=== PATIENT | male | born 1960 | race Caucasian/White ===

== ENCOUNTER 2018-02-02 06:28 | Inpatient (IN) | payer OTHER ==
[2018-01-25 10:24] VITALS: BMI 28.2
[~2018-02-02 06:28] MED LIST: CELECOXIB 200 MG CAPSULE PO ONE; GABAPENTIN 300 MG CAPSULE (FP) PO ONE; PANTOPRAZOLE 40 MG TABLET (FP) PO ONE; TRANEXAMIC ACID 1000 MG/10 ML VIAL IVPUSH ONE; oxyCODONE HCL 10 MG SUSTAINED ACTING TABLET PO ONE
--- NOTE | 2018-02-02 06:51 | HP ---
Admitting History and Physical - Admission Chief Complaint: right hip osteoarthritis x years History of Present Illness: 57-year-old male presenting in regard to his right hip. Patient has a long- standing history of right hip osteoarthritis. Patient complains of pain, limited range of motion, and difficulties with activities of daily living, such as putting on his socks and shoes. Patient has failed conservative treatment measures including PO medications, activity modification, exercise program, and injections. At this point, patient would like to proceed with a right total hip arthroplasty, [facility]. History Source: Patient - Past Medical History Cardiovascular: Yes: HTN Psych: Yes: Other (insomnia) - Past Surgical History Additional Past Surgical History: see written history and physical. - Smoking History Smoking history: Former smoker Have you smoked in the past 12 months: No Aproximately how many cigarettes per day: 20 If you are a former smoker, when did you quit?: 2017 - Alcohol/Substance Use Hx Alcohol Use: Yes (SOCIAL) Home Medications - Allergies Allergies/Adverse Reactions: Allergies Allergy/AdvReac Type Severity Reaction Status Date / Time Penicillins Allergy Severe Hives Verified 01/25/18 10:16 - Home Medications Home Medications: Ambulatory Orders Metoprolol Succinate 25 mg PO DAILY 01/25/18 Trazodone HCl 200 mg PO HS 01/25/18 Review of Systems Findings/Remarks: right hip pain, limited range of motion. Physical Examination Constitutional: Yes: Well Nourished, No Distress Eyes: Yes: Conjunctiva Clear HENT: Yes: Atraumatic, Normocephalic Neck: Yes: Supple Cardiovascular: Yes: Regular Rate and Rhythm Respiratory: Yes: Regular Gastrointestinal: Yes: Soft ...Rectal Exam: Yes: Deferred Musculoskeletal: Yes: Joint Stiffness (right hip) Assessment/Plan 57-year-old male presenting in regard to his right hip. Patient has a long- standing history of right hip osteoarthritis. Patient complains of pain, limited range of motion, and difficulties with activities of daily living, such as putting on his socks and shoes. Patient has failed conservative treatment measures including PO medications, activity modification, exercise program, and injections. Pros, cons, risks, benefits, and alternatives of a right total hip arthroplasty were discussed with the patient at length. Patient confirms his understanding. At this point, patient consents to a right total hip arthroplasty , [facility].
[2018-02-02] MEDS ORDERED: PANTOPRAZOLE 40 MG TABLET (FP) ONE (07:03)
[2018-02-02] MEDS ORDERED: CELECOXIB 200 MG CAPSULE ONE (07:04)
[2018-02-02] MEDS ORDERED: oxyCODONE HCL 10 MG SUSTAINED ACTING TABLET ONE (07:04)
[2018-02-02] MEDS ORDERED: GABAPENTIN 300 MG CAPSULE (FP) ONE (07:04)
[2018-02-02] MEDS ORDERED: VANCOMYCIN 1,000 MG VIAL (RESTRICTED TO ID ONLY) ONE (08:20)
[2018-02-02] MEDS ORDERED: ceFAZolin SODIUM 1 GM VIAL ONE ×2 (08:20→08:47)
[2018-02-02] MEDS ORDERED: TRANEXAMIC ACID 1000 MG/10 ML VIAL ONE ×2 (08:20→12:06)
[2018-02-02] MEDS ORDERED: DEXAMETHASONE SOD PHOSPHATE/PF 10 MG/ML SDV ONE (08:22)
[2018-02-02] MEDS ORDERED: MIDAZOLAM HCL 2 MG/2 ML SINGLE DOSE VIAL ONE ×2 (08:22→12:00)
[2018-02-02] MEDS ORDERED: ROPIVICAINE 0.2%/MORPH PF/KETOROLAC - 51ML DISP.SYRINGE IA ONE ×4 (08:22→10:36)
[2018-02-02] MEDS ORDERED: BUPIVACAINE HCL/PF (5 MG/ML) 30 ML VIAL IJ ONE ×2 (08:23→08:54)
[2018-02-02] MEDS ORDERED: PROPOFOL 20 ML ONE ×6 (08:46→12:15)
[2018-02-02] MEDS ORDERED: SUCCINYLCHOLINE CHLORIDE 200 MG/10 ML VIAL ONE (08:46)
[2018-02-02] MEDS ORDERED: ONDANSETRON 4 MG/2 ML VIAL ONE (08:47)
[2018-02-02] MEDS ORDERED: DEXAMETHASONE SOD PHOSPHATE 4 MG/1 ML VIAL ONE (08:47)
[2018-02-02] MEDS ORDERED: CEFAZOLIN 2 GM in DEXTROSE 5%-WATER - 50 ML IVPB ONE (09:00)
[2018-02-02] MEDS ORDERED: ePHEDrine SULFATE 50 MG/1 ML AMPULE ONE ×2 (09:49→10:20)
[2018-02-02] MEDS ORDERED: TRANEXAMIC ACID 1000 MG/10 ML VIAL IVPB ONE (10:10)
[2018-02-02] MEDS ORDERED: VANCOMYCIN 1,000 MG VIAL (RESTRICTED TO ID ONLY) IVPB ONE (10:11)
[2018-02-02] MEDS ORDERED: ONDANSETRON 4 MG/2 ML VIAL IVPUSH PRN ×2 (10:51→13:18)
[2018-02-02] MEDS ORDERED: oxyCODONE HCL 5 MG TABLET PO PRN (10:52)
[2018-02-02] MEDS ORDERED: KETOROLAC TROMETHAMINE 30 MG/1 ML VIAL ONE (13:04)
[2018-02-02] MEDS ORDERED: ACETAMINOPHEN INJECTION 100 ML IVPB ONE (13:04)
[2018-02-02] MEDS ORDERED: traMADol HCL 50 MG TABLET ONE (13:04)
[2018-02-02] MEDS ORDERED: MAGNESIUM HYDROX 2400MG/30ML ORAL SUSPENSION 30 ML CUP PO PRN (13:18)
[2018-02-02] MEDS ORDERED: MAG HYDROX/AL HYDROX/SIMETH 30 ML UNIT-DOSE CUP PO PRN (13:18)
[2018-02-02] MEDS ORDERED: LACTATED RINGERS SOLUTION 1,000 ML IV SCH (13:30)
[2018-02-02] MEDS: ACETAMINOPHEN 1000 MG/100 ML VIAL (NON FORMULARY) IVPB ONE (13:32)
[2018-02-02] MEDS: KETOROLAC TROMETHAMINE 30 MG/1 ML VIAL IVPUSH SCH ×2 (13:33→20:21)
--- NOTE | 2018-02-02 13:33 | OP ---
Operative Note - Note: Operative Date: 02/02/18 Pre-Operative Diagnosis: right hip osteoarthritis Operation: Right total hip makoplasty Post-Operative Diagnosis: Same as Pre-op Surgeon: Robert Lepe Glass Forming Crew Member: Freda Narvaez Anesthesiologist/FACTORY EXPERT: Clay Thakkar Anesthesia: Spinal, Local Specimens Removed: right femoral head Estimated Blood Loss (mls): 150 Fluid Volume Replaced (mls): 900 Operative Report Dictated: Yes
--- NOTE | 2018-02-02 13:34 | SURG ---
Surgery Mine Exploration Engineer Note Mine Exploration Engineer: Freda Narvaez PA-C Date of Service: 02/02/18 Diagnosis: right hip osteoarthritis Procedure: right total hip makoplasty I was present for the entirety of the operative procedure. For further detail, please refer to operative report. Visit type - Case Type Case Type: Scheduled Admission - Emergency Emergency Visit: No - New patient This patient is new to me today: Yes Date on this admission: 02/02/18
[2018-02-02] MEDS: traMADol HCL 50 MG TABLET PO SCH ×2 (13:37→20:22)
[2018-02-02] MEDS: oxyCODONE HCL 5 MG TABLET PO PRN ×3 (15:00→20:34)
[2018-02-02] MEDS ORDERED: CEFAZOLIN 2 GM in DEXTROSE 5%-WATER - 50 ML IVPB SCH (18:00)
[2018-02-02] MEDS ORDERED: DEXAMETHASONE SOD PHOSPHATE 10 MG/1 ML VIAL IVPB ONE (20:00)
[2018-02-02] MEDS: ACETAMINOPHEN 325 MG TABLET (FP) PO SCH (20:22)
[2018-02-02] MEDS: traZODone HCL 50 MG TABLET (FP) PO SCH (21:40)
[2018-02-02] MEDS: ASCORBIC ACID 500 MG TABLET (FP) PO SCH (21:41)
[2018-02-02] MEDS: GABAPENTIN 300 MG CAPSULE (FP) PO SCH (21:41)
[2018-02-02] MEDS: SENNOSIDES/DOCUSATE COMBO (SENNA PLUS) TABLET (UD) PO SCH (21:41)
[2018-02-02] MEDS: oxyCODONE HCL 10 MG SUSTAINED ACTING TABLET PO SCH (21:41)
[2018-02-02] MEDS: CELECOXIB 200 MG CAPSULE PO SCH (21:41)
[2018-02-02] MEDS ORDERED: GABAPENTIN 300 MG CAPSULE (FP) PO SCH (22:00)
[2018-02-03] MEDS: traMADol HCL 50 MG TABLET PO SCH ×5 (01:46→18:37)
[2018-02-03] MEDS: KETOROLAC TROMETHAMINE 30 MG/1 ML VIAL IVPUSH SCH ×3 (01:46→08:18)
[2018-02-03] MEDS: ACETAMINOPHEN 325 MG TABLET (FP) PO SCH ×4 (01:47→18:34)
[2018-02-03] MEDS: CEFAZOLIN 2 GM/D5W 2 GM/50 ML ML IVPB SCH ×2 (01:52→08:19)
[2018-02-03] MEDS: oxyCODONE HCL 5 MG TABLET PO PRN ×2 (05:20→09:45)
[2018-02-03] MEDS: ASPIRIN 325 MG TABLET PO SCH (08:00)
[2018-02-03] MEDS: ACETAMINOPHEN 1000 MG/100 ML VIAL (NON FORMULARY) IVPB ONE (08:18)
[2018-02-03] MEDS: LACTATED RINGERS SOLUTION 1,000 ML IV SCH ×2 (08:18→11:13)
[2018-02-03 08:29] LABS: HEMATOCRIT 39.2 % (35.4-49); HEMOGLOBIN 13.7 GM/dl (11.7-16.9); MCH 33.1 pg (25.7-33.7); MEAN CELL VOLUME 94.6 fl (80-96); MEAN PLT VOLUME 8.2 fl (7.5-11.1); PLATELET COUNT 247 K/MM3 (134-434); RBC 4.14 M/mm3 (4.00-5.60); RDW 14.7 % (11.9-15.9); WHITE BLOOD COUNT 14.8 K/mm3 (4.0-10.8)
[2018-02-03 09:05] LABS: ANION GAP 5 (8-16); BLOOD UREA NITROGEN 24 mg/dl (7-18); CALCIUM 8.3 mg/dl (8.4-10.2); CHLORIDE 97 mmol/L (98-107); CO2 28 mmol/L (22-28); CREATININE 1.2 mg/dl (0.6-1.3); GLUCOSE,RANDOM 149 mg/dl (74-106); POTASSIUM 5.3 mmol/L (3.5-5.1); SODIUM 130 mmol/L (136-145)
[2018-02-03] MEDS: CELECOXIB 200 MG CAPSULE PO SCH ×2 (09:42→21:54)
[2018-02-03] MEDS: ASCORBIC ACID 500 MG TABLET (FP) PO SCH ×2 (09:42→21:54)
[2018-02-03] MEDS: MULTIVITAMINS (DAILY MVI) TABLET (FP) PO SCH (09:42)
[2018-02-03] MEDS: metoPROLOL SUCCINATE 25 MG TAB.SR.24H (FP) PO SCH (09:43)
[2018-02-03] MEDS: GABAPENTIN 300 MG CAPSULE (FP) PO SCH ×2 (09:43→21:54)
[2018-02-03] MEDS: SENNOSIDES/DOCUSATE COMBO (SENNA PLUS) TABLET (UD) PO SCH ×2 (09:43→21:54)
[2018-02-03] MEDS: oxyCODONE HCL 10 MG SUSTAINED ACTING TABLET PO SCH ×2 (09:43→21:54)
[2018-02-03] MEDS: PANTOPRAZOLE 40 MG TABLET (FP) PO SCH (09:43)
--- NOTE | 2018-02-03 13:09 | PN ---
Progress Note (short form) - Note Progress Note: 57M POD1 s/p R THR under spinal anesthetic with peripheral nerve blocks. Pain is well controlled, reports no anesthetic complications. AVSS. Motor and sensory function intact in bilateral lower extremities. Continue current regimen.
--- NOTE | 2018-02-03 21:09 | PN ---
Progress Note (short form) - Note Progress Note: Pt seen and examined. Doing well. AVSS Selected Entries 02/03/18 21:50 Temperature 97.8 F Pulse Rate 52 L Respiratory 16 Rate Blood Pressure 128/62 O2 Sat by Pulse 99 Oximetry (%) Laboratory Tests 02/03/18 02/03/18 08:01 08:01 WBC 14.8 H Hgb 13.7 Hct 39.2 Plt Count 247 Sodium 130 L Potassium 5.3 H Chloride 97 L Carbon Dioxide 28 Anion Gap 5 L BUN 24 H Creatinine 1.2 Random Glucose 149 H Calcium 8.3 L Gen: NAD LLE: c/d/i, NVID A/P 57yo male POD#1 s/p R MONTEZ Doing well PT/OOB - WBAT LLE D/C in AM after PT; f/u in office in 10-14 days.
[2018-02-03] MEDS: traZODone HCL 50 MG TABLET (FP) PO SCH (21:54)
--- NOTE | 2018-02-03 22:36 | SPEC ---
DATE OF OPERATION: 02/02/2018 PREOPERATIVE DIAGNOSIS: Right hip osteoarthritis. POSTOPERATIVE DIAGNOSIS: Right hip osteoarthritis. PROCEDURE: Right total hip replacement with Makoplasty robotic navigation. ATTENDING: Darwin Brooks MD RANGELAND MANAGEMENT SPECIALIST: ASHLEY Ortiz ANESTHESIA: Spinal plus sedation. ESTIMATED BLOOD LOSS: 200 mL COMPLICATIONS: None. DISPOSITION: The patient was transferred to the PACU in stable condition. IMPLANTS USED: Lufkin Accolade II size 7 femoral component, Lufkin Tritanium 60-mm acetabular component with MDM bipolar head ball and liner with inner ceramic head ball with 0-mm offset, and 25-mm acetabular screws. INDICATIONS: This is a 57-year-old male who presented to the office complaining of severe right hip pain. He was seen and examined by Dr. Brooks and diagnosed with severe right hip osteoarthritis. The patient was initially treated nonoperatively with injections and medications and physical therapy but continued to have severe hip pain and ambulatory dysfunction. He was, therefore, indicated for a right total hip replacement with Makoplasty robotic navigation. The risks, benefits, and alternatives to the procedure were explained to the patient in great detail, and he elected to proceed with the surgery. DESCRIPTION OF PROCEDURE: On the day of surgery, the patient was taken to the operating room and placed on the OR table. Spinal anesthesia was administered by the anesthesiologist. The patient was then positioned in the lateral decubitus position on the table and all bony prominences were padded. An axillary roll was placed. The operative hip was then prepped and draped in the usual sterile fashion and intravenous antibiotics were given for infection prophylaxis. A surgical time-out was then performed with the team, and the patients identity, procedure, side, availability of implants, and the administration of antibiotics were confirmed. An approximately 15-cm longitudinal incision was made through the skin centered on the greater trochanter of the hip. This dissection was carried down through the subcutaneous tissues to the deep fascia. This fascia was then incised and a Cobra was placed around the inferior femoral neck. Electrocautery was used to reflect the anterior 40% of the gluteus medius and minimus starting at the musculotendinous junction and leaving a cuff for closure. This was reflected to reveal the capsule of the hip joint. An anterior capsulectomy was performed and the femoral head and neck were visualized. Grade 4 changes were noted diffusely throughout the joint. At this point, three small stab incisions were made superior to the main incision along the iliac crest. Three self-drilling Steinmann pins were then placed and the PolySuite pelvic array was attached. Reference points on the limb were then entered into the robotic device and the limb length deficiency, offset, and femoral neck resection level were then calculated by the software. The hip was then dislocated with traction and external rotation. An oscillating saw was used to make the femoral neck cut at the level previously templated, and the femoral head was removed. Attention was then turned to the acetabulum. Retractors were then placed around the acetabulum and the labrum was removed. An acetabular checkpoint pin and the PolySuite software were used to register the contours of the acetabulum. The acetabulum was then reamed in a single stage to the preoperatively templated size using the Julio robotic arm. The appropriately sized cup was then impacted and had solid fixation as well as the preset inclination and version of 40 and 20 degrees, respectively. A polyethylene liner was then placed in the cup. Attention was then turned back to the femur, which was externally rotated for improved visualization. A femoral neck elevator was used to present the femoral neck cut, a box osteotome was used to enter the femoral canal, and a canal finder was used to go down the femoral shaft. The Julio broaches were used sequentially until the optimal scratch fit was achieved. This correlated with the preoperatively templated size. From here, several different offset head and neck configurations were tested until excellent stability and length were obtained. These measurements were quantified using the PolySuite software. All trial components were then removed, the femur was copiously irrigated, and the final components were placed. Leg length and stability were checked again and found to be excellent. Irrigation was performed again. Wound closure was started by repairing the abductor muscles with a no. 2 FiberWire stitch in a Krackow configuration passed through bone tunnels in the greater trochanter and tied over a bony bridge. This repair was then reinforced with a 0 V-Loc 180 barbed suture. Next, no. 1 Polysorb and 0 V-Loc 180 were used to close the fascia. The deep subcutaneous tissue was closed with no. 1 Polysorb sutures, and 2-0 Polysorb was used for the superficial subcutaneous tissue. The skin was closed using both 3-0 V-Loc 90 suture in a running subcuticular fashion and SwiftSet skin adhesive. The Julio array and pins were removed from the iliac crest and the stab incision sites were irrigated and closed with 4-0 Polysorb sutures and SwiftSet skin adhesive. Once this was completed, a sterile dressing was applied. The patient was then awakened and taken to the PACU in stable condition. After final implants were placed, a 3-minute dilute Betadine lavage was performed. Following this, the wound was thoroughly irrigated with normal saline via pulsatile lavage, and wound closure was begun. DARWIN BROOKS M.D. [id number]
[2018-02-04] MEDS: ACETAMINOPHEN 325 MG TABLET (FP) PO SCH ×2 (01:28→06:34)
[2018-02-04] MEDS: traMADol HCL 50 MG TABLET PO SCH ×2 (01:28→06:33)
[2018-02-04] MEDS: oxyCODONE HCL 5 MG TABLET PO PRN ×2 (06:34→10:20)
[2018-02-04 07:07] VITALS: BP 105/65; PULSE 59; TEMP 98.1
[2018-02-04 08:10] LABS: HEMATOCRIT 37.6 % (35.4-49); MCH 32.8 pg (25.7-33.7); MCHC 34.5 g/dl (32.0-35.9); MEAN CELL VOLUME 95.3 fl (80-96); MEAN PLT VOLUME 8.3 fl (7.5-11.1); PLATELET COUNT 220 K/MM3 (134-434); RBC 3.95 M/mm3 (4.00-5.60); RDW 14.4 % (11.9-15.9); WHITE BLOOD COUNT 10.1 K/mm3 (4.0-10.8)
[2018-02-04] MEDS: ASPIRIN 325 MG TABLET PO SCH (09:07)
[2018-02-04] MEDS: GABAPENTIN 300 MG CAPSULE (FP) PO SCH (09:08)
[2018-02-04] MEDS: SENNOSIDES/DOCUSATE COMBO (SENNA PLUS) TABLET (UD) PO SCH (09:08)
[2018-02-04] MEDS: MULTIVITAMINS (DAILY MVI) TABLET (FP) PO SCH (09:08)
[2018-02-04] MEDS: PANTOPRAZOLE 40 MG TABLET (FP) PO SCH (09:08)
[2018-02-04] MEDS: CELECOXIB 200 MG CAPSULE PO SCH (09:08)
[2018-02-04] MEDS: ASCORBIC ACID 500 MG TABLET (FP) PO SCH (09:09)
[2018-02-04] MEDS: metoPROLOL SUCCINATE 25 MG TAB.SR.24H (FP) PO SCH (09:09)
[2018-02-04] MEDS: oxyCODONE HCL 10 MG SUSTAINED ACTING TABLET PO SCH (09:09)
--- NOTE | 2018-02-06 10:47 | PATH ---
Surgical Pathology Report Patient Name: NITISH GARDINER Med. Rec. #: [id number] /Age/Gender: 1960 (Age: 57) / M Account: [id number] Location: [facility] Taken: 02/02/2018 Received: 02/02/2018 Reported: 02/06/2018 Physicians: Robert Lepe M.D. Specimen(s) Received RIGHT FEMORAL HEAD Clinical History Osteoarthritis right hip Final Diagnosis FEMORAL HEAD, RIGHT, TOTAL HIP REPLACEMENT MAKOPLASTY: BONE WITH DEGENERATIVE JOINT DISEASE. Electronically Signed Vivian Knowles M.D. Gross Description Received in formalin, labeled "right femoral head," is a 5.0 x 5.0 x 4.2 cm. femoral head with no femoral neck attached. The margin of resection is smooth. There is a 2.8 cm greatest dimension area of eburnation present. The remaining articular surface is millan-yellow and diffusely granular. The underlying trabecular bone is yellow and hard. A sales representative consultant section is submitted in one cassette, following decalcification. 02/03/2018 [facility]02/03/2018
== END 2018-02-04 10:30 | disposition home health service (06) | DRG 301 ==
LOC: FM/S 06:28
PROVIDERS: ADMIT Student in an Organized Health Care Education/Training Program; ATTEND Student in an Organized Health Care Education/Training Program
PROC: 8E0W0CZ Robotic Assisted Procedure of Trunk Region, Open Approach (ICD-10-PCS; 2018-02-02)
PROC: 0SR90JZ Replacement of Right Hip Joint with Synthetic Substitute, Open Approach (ICD-10-PCS; principal; 2018-02-02 10:05)
DX: M16.11 Unilateral primary osteoarthritis, right hip (principal); I10 Essential (primary) hypertension; G47.09 Other insomnia; Z87.891 Personal history of nicotine dependence
CPT/HCPCS: 36415; 73502-TC-RT; 80048; 85027; 87389; 88304-TC; 88311-TC; 94010; 94760; 97116-GP; 97162-GP; J0131; J1100